=== PATIENT | male | born 1950 | race Caucasian/White ===

== ENCOUNTER 2021-05-14 07:47 | Inpatient (IN) | payer OTHER ==
[~2021-05-14] VITALS: Ht 177.8 cm; Wt 88.4 kg
[2021-05-14 09:16] LABS: BASOPHILS % (AUTO) 0.1 % (0-1); EOSINOPHILS % (AUTO) 0.1 % (0-6); HEMATOCRIT 44.8 % (42.0-52.0); HEMOGLOBIN 15.8 g/dl (14.0-17.9); LYMPHOCYTES # (AUTO) 0.8 X10'3 (1.1-4.8); LYMPHOCYTES % (AUTO) 9.2 % (21-51); MEAN CORPUSCULAR HEMOGLOBIN 34.3 PG (27.0-31.0); MEAN CORPUSCULAR HGB CONC 35.3 g/dL (33.0-36.5); MEAN PLATELET VOLUME 8.3 FL (7.4-10.4); MONOCYTES # (AUTO) 0.8 X10'3 (0-0.9); NEUTROPHILS # (AUTO) 6.9 X10'3 (1.8-7.7); NEUTROPHILS % (AUTO) 81.6 % (42-75); PLATELET COUNT 201 X10'3 (140-440); RED BLOOD COUNT 4.62 X10'6 (4.70-6.10); RED CELL DISTRIBUTION WIDTH 12.7 % (11.5-14.5); WHITE BLOOD COUNT 8.4 X10'3 (4.5-11.0)
[2021-05-14 09:40] LABS: ALANINE AMINOTRANSFERASE 29 U/L (12-78); ALBUMIN 4.1 G/DL (3.4-5.0); ALBUMIN/GLOBULIN RATIO 1.2 (1.1-1.5); ALKALINE PHOSPHATASE 62 IU/L (46-116); ANION GAP 6 (8-16); ASPARTATE AMINO TRANSFERASE 18 U/L (10-37); BLOOD UREA NITROGEN 23 MG/DL (7-18); CALCIUM 10.3 MG/DL (8.5-10.1); CHLORIDE 102 MMOL/L (99-107); GLUCOSE 122 MG/DL (70-104); POTASSIUM 4.9 MMOL/L (3.5-5.1); SODIUM 138 MMOL/L (135-145); TOTAL CARBON DIOXIDE 30.5 MMOL/L (24-32); TOTAL PROTEIN 7.5 G/DL (6.4-8.2)
[2021-05-14 09:41] LABS: BUN/CREATININE RATIO 21.7 (5.4-32.0); CREATININE 1.06 MG/DL (0.60-1.10); eGFR 69 ML/MIN
[2021-05-14] MEDS ORDERED: iohexol 300mg/ml 100ml inj. ONE (10:20)
[2021-05-14] MEDS ORDERED: pantoprazole 40 MG vial IV ONE (12:05)
[2021-05-14] MEDS ORDERED: MIRT45TA79 PO (12:33)
[2021-05-14] MEDS ORDERED: NIAC500C12 PO (12:33)
[2021-05-14] MEDS ORDERED: ROSU10TA2 PO (12:33)
[2021-05-14] MEDS ORDERED: EZET10TA6 PO (12:33)
[2021-05-14] MEDS ORDERED: ICOS1CAP PO (12:33)
[2021-05-14] MEDS ORDERED: CHOL20002 PO (12:33)
[2021-05-14] MEDS ORDERED: ASPI81TA52 PO (12:33)
[2021-05-14] MEDS ORDERED: magnesium 4gm in 100ml NS 100 ML IV PRN (12:35)
[2021-05-14] MEDS ORDERED: bisacodyl 10mg suppository rectal RC PRN (12:35)
[2021-05-14] MEDS ORDERED: potassium Cl 40MEQ/1/2NS 520ml 520 ML IV PRN ×2 (12:35)
[2021-05-14] MEDS ORDERED: magnesium 2GM in 50ml NS 50 ML IV PRN (12:35)
[2021-05-14] MEDS ORDERED: mag hydrox/Alum hydrox/simeth 30ml oral suspension PO PRN (12:35)
[2021-05-14] MEDS ORDERED: diphenhydrAMINE 25mg capsule PO PRN (12:35)
[2021-05-14] MEDS ORDERED: HYDROcodone/acetaminophen 5mg/325mg tablet PO PRN (12:35)
[2021-05-14] MEDS ORDERED: ondansetron/PF 4mg/2ml inj IV PRN (12:35)
[2021-05-14] MEDS ORDERED: metoclopramide 5 mg/ml inj IV PRN (12:35)
[2021-05-14] MEDS ORDERED: morphine 2 MG/ML inj. syringe IV PRN ×2 (12:35)
[2021-05-14] MEDS ORDERED: HYDROcodone/acetaminophen 10/325mg tab PO PRN (12:35)
[2021-05-14] MEDS ORDERED: potassium Cl 20 mEq SR tablet PO PRN ×2 (12:35)
[2021-05-14] MEDS ORDERED: magnesium hydroxide 30ml (MOM) UD suspension PO PRN (12:35)
[2021-05-14] MEDS ORDERED: acetaminophen 650mg rectal suppository RC PRN (12:35)
[2021-05-14] MEDS ORDERED: acetaminophen 325mg tablet PO PRN ×2 (12:35)
[2021-05-14] MEDS ORDERED: magnesium Cl slow-release 64mg tablet PO PRN (12:35)
[2021-05-14] MEDS ORDERED: EMOL45EM TOP (12:38)
[2021-05-14 12:55] LABS: CLARITY,URINE CLEAR (Clear); COLOR,URINE YELLOW (Yellow); GLUCOSE, URINE NEGATIVE (Neg); KETONES,URINE NEGATIVE (Neg); LEUKOCYTE ESTERASE ,URINE NEGATIVE (Neg); NITRITES, URINE NEGATIVE (Neg); OCCULT BLOOD,URINE TRACE-INTACT (Neg); PH,URINE 5.5 (4.8-8.0); PROTEIN,URINE NEGATIVE (Neg); UROBILINOGEN,URINE 0.2 E.U/dL (0.2-1.0)
[2021-05-14 12:56] LABS: UA COLLECTION TYPE CLN CATCH MIDSTREAM
[2021-05-14 13:06] LABS: BACTERIA,URINE NONE SEEN /HPF (Neg); MUCUS STRANDS NONE SEEN /LPF (Neg); RBC,URINE 0-2 /HPF (0-2); SQUAMOUS EPITHELIAL CELL,UR NONE SEEN /LPF (FEW); WBC,URINE NONE SEEN /HPF (0-4)
[2021-05-14 14:30] VITALS: BP 121/73
[2021-05-14] MEDS: normal saline 1000ml 1,000 ML IV SCH ×2 (14:50→22:55)
--- NOTE | 2021-05-14 14:51 | NUR ---
[facility] PCT transported pt via wheelchair. PT stable. VS stable 96%-74-98.5-121/73-0/10. 2 RN skin assessment and physical assessment completed. MRSA swab collected.
--- NOTE | 2021-05-14 18:09 | NUR ---
Problems reprioritized. Patient report given, questions answered & plan of care reviewed with FROY Ricci.
[2021-05-14 18:30] VITALS: BP 119/71
[2021-05-14 18:50] VITALS: BP 119/71
[2021-05-14] MEDS: K and/or MAG REPLACEMENT MC SCH (20:00)
[2021-05-14] MEDS: heparin, porcine 5000 units/ml vial SQ SCH (20:21)
[2021-05-14] MEDS: diatr meglu/diatrizoate 30ml oral sol.-(3 dose) bottle PO SCH (22:55)
--- NOTE | 2021-05-15 06:36 | NUR ---
Patient in room [facility]. I have received report from FROY Ricci and had the opportunity to ask questions and assume patient care.
--- NOTE | 2021-05-15 06:39 | NUR ---
Problems reprioritized. Patient report given, questions answered & plan of care reviewed with KAYLIE. Addendum: 05/15/21 at 0640 by Radhames Estrada RN Amended: Links added.
[2021-05-15 06:54] LABS: BASOPHILS % (AUTO) 0.3 % (0-1); EOSINOPHILS # (AUTO) 0.1 X10'3 (0-0.9); EOSINOPHILS % (AUTO) 3.5 % (0-6); HEMOGLOBIN 14.5 g/dl (14.0-17.9); LYMPHOCYTES # (AUTO) 1.1 X10'3 (1.1-4.8); LYMPHOCYTES % (AUTO) 27.2 % (21-51); MEAN CORPUSCULAR HEMOGLOBIN 33.5 PG (27.0-31.0); MEAN CORPUSCULAR HGB CONC 34.4 g/dL (33.0-36.5); MEAN CORPUSCULAR VOLUME 97.3 FL (78-98); MEAN PLATELET VOLUME 8.4 FL (7.4-10.4); MONOCYTES # (AUTO) 0.6 X10'3 (0-0.9); MONOCYTES % (AUTO) 15.3 % (2-12); NEUTROPHILS # (AUTO) 2.1 X10'3 (1.8-7.7); NEUTROPHILS % (AUTO) 53.7 % (42-75); PLATELET COUNT 176 X10'3 (140-440); RED BLOOD COUNT 4.31 X10'6 (4.70-6.10); RED CELL DISTRIBUTION WIDTH 12.9 % (11.5-14.5); WHITE BLOOD COUNT 3.9 X10'3 (4.5-11.0)
[2021-05-15 07:07] VITALS: BP 118/69
[2021-05-15 07:09] LABS: ALANINE AMINOTRANSFERASE 24 U/L (12-78); ALBUMIN 3.5 G/DL (3.4-5.0); ALBUMIN/GLOBULIN RATIO 1.2 (1.1-1.5); ALKALINE PHOSPHATASE 52 IU/L (46-116); ANION GAP 8 (8-16); ASPARTATE AMINO TRANSFERASE 17 U/L (10-37); BILIRUBIN,TOTAL 0.8 MG/DL (0.1-1.0); BLOOD UREA NITROGEN 22 MG/DL (7-18); BUN/CREATININE RATIO 23.2 (5.4-32.0); CALCIUM 8.6 MG/DL (8.5-10.1); CHLORIDE 105 MMOL/L (99-107); CHOL/HDL RATIO 2.6 (0.00-4.99); CHOLESTEROL 101 MG/DL (0-200); CREATININE 0.95 MG/DL (0.60-1.10); GLUCOSE 89 MG/DL (70-104); HDL CHOLESTEROL 39 MG/DL (35-60); LDL CHOLESTEROL 44 MG/DL (50-100); MAGNESIUM 1.9 MG/DL (1.5-2.4); PHOSPHORUS 3.5 MG/DL (2.3-4.5); POTASSIUM 4.5 MMOL/L (3.5-5.1); SODIUM 139 MMOL/L (135-145); TOTAL CARBON DIOXIDE 26.1 MMOL/L (24-32); TOTAL PROTEIN 6.5 G/DL (6.4-8.2); TRIGLYCERIDES 76 MG/DL (20-135); eGFR 78 ML/MIN
[2021-05-15 07:45] LABS: PLATELET ESTIMATE NORMAL; TOTAL CELLS COUNTED 100
[2021-05-15 07:46] LABS: LARGE PLATELETS MODERATE
[2021-05-15] MEDS ORDERED: cholecalciferol (vitamin D3) 1,000 unit (25mcg) tablet PO SCH (08:00)
[2021-05-15] MEDS ORDERED: aspirin 81mg tablet.DR PO SCH (08:00)
[2021-05-15] MEDS ORDERED: [UNRECOGNIZED DRUG - OTHER] TP SCH (08:00)
[2021-05-15] MEDS ORDERED: atorvastatin 20mg tablet PO SCH (08:00)
[2021-05-15] MEDS: K and/or MAG REPLACEMENT MC SCH (08:25)
[2021-05-15] MEDS: heparin, porcine 5000 units/ml vial SQ SCH (08:28)
[2021-05-15] MEDS: diatr meglu/diatrizoate 30ml oral sol.-(3 dose) bottle PO SCH ×2 (08:29→10:10)
[2021-05-15] MEDS ORDERED: iohexol 300mg/ml 100ml inj. ONE (09:38)
--- NOTE | 2021-05-15 09:45 | NUR ---
Pt to CT
--- NOTE | 2021-05-15 10:31 | NUR ---
Pt back from CT
[2021-05-15 11:00] VITALS: BP 130/75
--- NOTE | 2021-05-15 13:26 | NUR ---
PAGER ID: [phone] MESSAGE: [phone]: Willie Gonsales: Spoke to Kassie, saw pt yesterday and stated pt doesn't need sx and diet per hospitalist -diego [phone]
--- NOTE | 2021-05-15 15:28 | NUR ---
Pt stable for discharge. Educated and answered any questions or concerns pt may have regarding discharge. No new medications sent to pharmacy. Pt belongings sent with pt. PIV removed, cannula intact. Pt walked downstairs with PCT into his own car.
[2021-05-15] MEDS ORDERED: ezetimibe 10mg tablet PO SCH (21:00)
[2021-05-15] MEDS ORDERED: niacin 500mg timed-release capsule PO SCH (21:00)
[2021-05-15] MEDS ORDERED: Icosapent Ethyl (Vascepa) 2 CAP) PO SCH (21:00)
[2021-05-15] MEDS ORDERED: mirtazapine 15mg tablet PO SCH (21:00)
== END 2021-05-15 15:17 | disposition home or self-care (01) | DRG 394 ==
LOC: ER 07:48 → ED HOLD 12:31 → SUR 3N 14:43
PROVIDERS: ADMIT Family Medicine; ATTEND Family Medicine
PROC: BW211ZZ Computerized Tomography (CT Scan) of Abdomen and Pelvis using Low Osmolar Contrast (ICD-10-PCS; principal; 2021-05-14)
DX: K94.19 Other complications of enterostomy (principal); K56.609 Unspecified intestinal obstruction, unspecified as to partial versus complete obstruction; E78.1 Pure hyperglyceridemia; E78.5 Hyperlipidemia, unspecified; K43.5 Parastomal hernia without obstruction or gangrene; Z80.1 Family history of malignant neoplasm of trachea, bronchus and lung; Z80.8 Family history of malignant neoplasm of other organs or systems; Z82.49 Family history of ischemic heart disease and other diseases of the circulatory system; Z85.46 Personal history of malignant neoplasm of prostate; Z85.828 Personal history of other malignant neoplasm of skin; Z79.899 Other long term (current) drug therapy
CPT/HCPCS: 36415; 74022; 74176; 74177; 80053; 80061; 81001; 83036; 83605; 83735; 84100; 84145; 84443; 85007; 85025; 87081; 93005; 96374; 99285; C9113; G0378; J1644; J7030; Q9963; Q9967